=== PATIENT | female | born 1975 | race Caucasian/White ===

== ENCOUNTER 2022-01-21 10:39 | Emergency (ER) | payer OTHER ==
[2022-01-21 11:08] LABS: BASOPHIL 0.3 % (0-2); EOSINOPHIL 1.3 % (0-5); HCT 46.4 % (37.0-47.0); HGB 15.9 g/dl (12.5-16.0); LYMPHOCYTE 16.7 % (15-48); MCH 31.6 pg (25.0-31.0); MCHC 34.3 g/dL (32.0-36.0); MCV 92.2 fL (78.0-100.0); MONOCYTE 9.6 % (0-12); NEUTROPHIL 71.8 % (41-80); NRBC 0; PLT 337 K/uL (150-400); RBC 5.03 M/uL (4.20-5.40); RDW 12.2 % (11.5-14.0); WBC 10.1 K/uL (4.0-10.5)
[2022-01-21 11:34] LABS: BILIRUBIN - TOTAL 1.6 mg/dL (0.2-1.0); BUN/CREAT RATIO (CALC) 20.8 RATIO; CREATININE 0.72 mg/dL (0.51-0.95); GLOBULIN (CALCULATION) 3.6 g/dL; MAGNESIUM 1.7 mg/dL (1.8-2.4); POTASSIUM 3.9 mmol/L (3.5-5.1); TOTAL PROTEIN 7.6 g/dL (6.4-8.2)
[2022-01-21 11:49] LABS: LACTIC ACID 2.8 mmol/L (0.4-1.9)
[2022-01-21 12:45] LABS: BILIRUBIN NEGATIVE (NEGATIVE); BLOOD TRACE-INTACT Ery/uL (NEGATIVE); CLARITY CLEAR (CLEAR); COLOR YELLOW (YELLOW); GLUCOSE (U) NORMAL (NORMAL); LEUKOCYTES NEGATIVE Leu/uL (NEGATIVE); NITRITE NEGATIVE (NEGATIVE); PROTEIN NEGATIVE (NEGATIVE); UROBILINOGEN 0.2 mg/dL (0.2-1.0)
[2022-01-21 12:51] LABS: BACTERIA TRACE; URINARY RBC RARE
[2022-01-21] MEDS ORDERED: ONDANSETRON ODT4 MG PO (13:36)
[2022-01-21] MEDS ORDERED: PAXLOVID CO-PA1 EAC1 PO (13:36)
== END 2022-01-21 14:20 | disposition home or self-care (01) ==
LOC: FER 10:39
PROVIDERS: Emergency Medicine
DX: U07.1 COVID-19 (principal); A08.4 Viral intestinal infection, unspecified; R55 Syncope and collapse; I10 Essential (primary) hypertension; F17.290 Nicotine dependence, other tobacco product, uncomplicated
CPT/HCPCS: 36415; 71260; 80053; 81001; 82728; 83605; 83690; 83735; 84145; 84484; 85025; 85379; 93005; J2405; J7030; U0002